=== PATIENT | female | born 1975 | race Caucasian/White ===

== ENCOUNTER 2016-06-08 10:40 | Emergency (ER) | payer SELFPAY ==
[2016-06-08] MEDS ORDERED: OXYCODONE/APAP 5/325 TAB PO ONE (11:14)
--- NOTE | 2016-06-08 11:14 | EDPHY ---
H & P Stated Complaint: dx last week with bronchitis/now with upper back pain with cough and deep b Time Seen by Provider: 06/08/16 10:51 - Personal History LMP (Females 10-55): Hysterectomy Current Tetanus/Diphtheria Vaccine: Yes - Medical/Surgical History Hx Asthma: No Hx Chronic Respiratory Disease: No Hx Diabetes: No Hx Cardiac Disease: No Hx Renal Disease: No Hx Cirrhosis: No Hx Alcoholism: No Hx HIV/AIDS: No Hx Splenectomy or Spleen Trauma: No Other PMH: HTN, HYSTERECTOMY / vp sales shunt l wrist fx - Social History Smoking Status: Never smoked Constitutional: Initial Vital Signs Temperature (C) 36.7 C 06/08/16 10:43 Heart Rate 94 06/08/16 10:43 Respiratory Rate 26 H 06/08/16 10:43 Blood Pressure 166/129 H 06/08/16 10:43 O2 Sat (%) 100 06/08/16 10:43 O2 Delivery Mode Room Air Allergies/Adverse Reactions: amoxicillin Allergy (Verified 06/08/16 10:41) hydrocodone Allergy (Verified 06/08/16 10:41) Home Medications: Medication Instructions Recorded Lisinopril [Zestril 40 mg (*)] 40 mg PO DAILY 02/18/16 Medical Decision Making ED Course/Re-evaluation: CHIEF COMPLAINT: Back pain HISTORY OF PRESENT ILLNESS: 41-year-old female who was diagnosed with bronchitis a couple of weeks ago. She was given a Z-Gino. She had a fairly productive cough. Although her cough is less productive she still having a lot of pain just to the left of her spine between her scapula. It hurts to move and hurts to cough and deep breathe. This developed yesterday. She denies any fevers or chills or systemic symptoms. The pain is exacerbated with any movement or coughing. She denies any chest pain or chest pressure. She denies any syncope. She denies any shortness of breath is just hurts to take a deep breath. REVIEW OF SYSTEMS: A 10 point review of systems was performed and is negative with the exception of the elements mentioned in the history of present illness. PHYSICAL EXAM: HR, BP, O2 Sat, RR. Temp noted General Appearance: Alert, well hydrated, appropriate, and non-toxic appearing. Head: Atraumatic without scalp tenderness or obvious injury Eyes: Pupils equal, round, reactive to light and accommodation, EOMI, no trauma , no injection. Ears: Clear bilaterally, no perforation, normal landmarks Nose: Atraumatic, no rhinorrhea, clear. Throat: There is no erythema or exudates, no lesions, normal tonsils, mucus membranes moist. Neck: Supple, 2+ carotid upstroke, nontender, no lymphadenopathy. Respiratory: No retractions, no distress, no wheezes, and no accessory muscle use. Lungs are clear to auscultation bilaterally. She is splinting and does not want to take a deep breath because the pain but what I here is clear Cardiovascular: Regular rate and rhythm, no murmurs, rubs, or gallops. Bilateral carotid, radial, dorsalis pedis, and posterior tibial pulses intact. Good capillary refill all extremities. Gastrointestinal: Abdomen is soft, nontender, non-distended, no masses, no rebound, no guarding, no peritoneal signs. Musculoskeletal: Normal active ROM of all extremities, atraumatic. Neurological: Alert, appropriate, and interactive. The patient has normal DTRs and non-focal cranial nerves, motor, sensory, and cerebellar exam. Skin: No rashes, good turgor, no nodules on palpation. Past medical history: Bronchitis Past surgical history: Noncontributory Family history: Noncontributory Social history: , employed, does not abuse tobacco drugs or alcohol DIAGNOSTICS/PROCEDURES/CRITICAL CARE TIME: Study: PA and Lateral Chest X-ray Indication: thoracic pain Results: After viewing the images myself on the PACS system. My interpretation of the images is: no acute process. The radiologist interpretation is pending at the time of this dictation. Study: CT angiography of the chest Indication: pleuritic chest pain with a normal chest x-ray Results: CT scan of the chest was obtained. The results of the study are no acute process. The study was read by the radiologist, Dr. Wilber Bird. I viewed the images myself on the PACS system. DIFFERENTIAL DIAGNOSIS: The differential diagnosis for the patient's back pain included but was not limited to musculo-skeletal pain, epidural abscess, herniated disk, spinal fracture, rib injury, pneumonia, pneumothorax, pleurisy MEDICAL DECISION MAKING: This patient has good vital signs but is splinting with any deep breath due to pain in her back next to her left scapula medially. This developed during severe coughing episodes. I have given her 2 Percocet and I am waiting for chest x-ray. Chest x-ray shows no acute process. I will check an i-STAT, test, and perform CT angiography to make sure there is no evidence of any other disease process including pulmonary embolus with her pleuritic sharp pain This patient has no obvious findings on angiography of her chest. There is no PE or pneumonia or any other significant findings. I will give this patient pain medicine and send her home she probably has some musculoskeletal injury from coughing. - Data Points Laboratory Results: 06/08/16 06/08/16 12:00 11:57 POC Hgb 12.2 L gm/dL (12.3-15.9) POC Hct 36 % (35.5-47.5) POC Sodium 141 mEq/L (134-144) POC Potassium 4.0 mEq/L (3.3-5.0) POC Chloride 105 mEq/L (96-108) POC BUN 8 mg/dL (7-23) POC Creatinine 0.7 mg/dL (0.6-1.2) POC Glucose 91 mg/dL (70-100) Beta HCG, Qual NEGATIVE Medications Given: Discontinued Medications Oxycodone/Acetaminophen (Percocet 5/325) 2 tab PO EDNOW ONE Stop: 06/08/16 11:15 Last Admin: 06/08/16 11:36 Dose: 2 tab Point of Care Test Results: 06/08/16 11:57 POC Sodium 141 POC Potassium 4.0 POC Chloride 105 POC BUN 8 POC Creatinine 0.7 POC Glucose 91 Departure - Departure Disposition: Home, Routine, Self-Care Clinical Impression: Back pain Qualifiers: Back pain location: thoracic back pain Chronicity: acute Back pain laterality: midline Qualifier Code: (M54.6) Pain in thoracic spine Condition: Good Instructions: Back Pain (ED)
--- NOTE | 2016-06-08 11:43 | DX ---
PA and Lateral Chest Indication: Dyspnea Comparison: None Findings: Lungs are clear except for minimal linear atelectasis in the left base. No pneumothorax, co nfluent airspace consolidation, edema or effusion. Heart size is normal. A left ventricular peritonea l shunt catheter courses down the anterior chest wall. Impression: Minimal left basilar atelectasis. Otherwise clear lungs.
[2016-06-08] MEDS ORDERED: IOPAMIDOL (ISOVUE 370) 100 ML BTL IV ONE (12:28)
--- NOTE | 2016-06-08 13:07 | CT ---
CT Chest Angiogram Comparison: Chest x-ray today. Indication: Dyspnea. Pain when breathing in. Technique: Thinly collimated multidetector helical CT imaging was performed through the chest while 90 mL of Isovue-[id number] were injected intravenously without complication. The images were then transferr ed to an independent workstation where multiplanar reconstructions were performed. Dose reduction jesse hniques were utilized. Findings: CT Chest Angiogram: The pulmonary arterial system is well opacified. No intraluminal filling defect s to suggest acute or chronic thrombopulmonary embolic disease. The thoracic aorta is normal caliber . No aneurysm or dissection. CT Chest: The lungs are clear. No pulmonary nodule, mass, or enlarged lymph nodes. Heart size is nor mal. No pericardial or pleural effusion. The imaged portion of the upper abdomen is negative. Impression: 1. No evidence of thrombopulmonary embolic disease. Results called to Dr. Curtis Damico.
[2016-06-08 13:51] VITALS: BP 168/120; PULSE 97; RESP 16; TEMP 98.2; O2SAT 97
== END 2016-06-08 13:41 | disposition home or self-care (01) ==
DX: M54.6 Pain in thoracic spine (principal); I10 Essential (primary) hypertension
CPT/HCPCS: 82947-QW; Q9967